=== PATIENT | female | born 2000 | race Caucasian/White ===

== ENCOUNTER 2024-03-06 10:21 | Outpatient (CLI) | payer OTHER, SELFPAY ==
--- NOTE | 2024-03-06 11:30 | ECG_ITS ---
Test Date: 2024-03-06 11:36:15 Measurements Intervals [place] Rate: 80 P: 57 IN: 151 QRS: 12 QRSD: 92 T: 43 QT: 348 QTc: 404 Interpretive Statements SINUS RHYTHM POSSIBLE LEFT ATRIAL ENLARGEMENT [-0.1mV P WAVE IN V1/V2] INCOMPLETE RIGHT BUNDLE BRANCH BLOCK No previous ECG available for comparison Electronically Signed On 03-07-2024 10:29:52 CDT by Palmira Bowen M.D.
== END 2024-03-06 10:22 | disposition home or self-care (01) ==
PROVIDERS: PCP Family Medicine; Visit Provider Physician Assistant Medical
DX: R00.2 Palpitations (principal); I45.10 Unspecified right bundle-branch block
CPT/HCPCS: 93005

== ENCOUNTER 2024-03-29 12:59 | Outpatient (CLI) | payer OTHER, SELFPAY ==
--- NOTE | 2024-03-29 13:03 | ECHO_ITS ---
Patient Info Name: Radha Kilpatrick Age: 24 years : 2000 Gender: Female Ht: 64 in Wt: 173 lbs BSA: 1.91 m2 HR: 75 bpm BP: 134 / 91 mmHg Heart Rhythm: Sinus Rhythm Technical Quality: Good Exam Date: 03/29/2024 1:38 PM Exam Location: Echo Lab Patient Status: Outpatient Admit Date: 03/29/2024 Staff Ordering Physician: Danelle Olivo MD Pizza Cook: Germain Larios RDCS Attending Provider: Danelle Olivo MD Referring Physician: Geovani TOMLIN; Exam Type: CA echo doppler color flow Study Info Indications - palpatation Complete two-dimensional, color flow and Doppler transthoracic echocardiogram is performed. Summary 1. Complete two-dimensional, color flow and Doppler transthoracic echocardiogram is performed. 2. Left ventricular chamber dimension is normal. 3. Left ventricular systolic function is normal, estimated at 60-65%. 4. The left ventricular diastolic function is normal. 5. E/e' 8 is minimally elevated. 6. There is trace mitral valve regurgitation. 7. There is trace tricuspid valve regurgitation. 8. No pulmonary hypertension, estimated pulmonary arterial systolic pressure is 20 mmHg. 9. There is trace pulmonic regurgitation. Left Ventricle E/e' 8 is minimally elevated. Left ventricular chamber dimension is normal. Left ventricular systolic function is normal, estimated at 60-65%. The left ventricular diastolic function is normal. Right Ventricle Right ventricular systolic function is normal and with normal TAPSE 2.3 cm. Right ventricular chamber dimension is normal. Left Atria Left atrial chamber dimension is normal. Right Atria Right atrial chamber dimension is normal. Aortic Valve The aortic valve is trileaflet. There is no aortic valve stenosis. There is no aortic valve regurgitation. Pulmonic Valve There is trace pulmonic regurgitation. Mitral Valve There is no mitral valve stenosis. There is trace mitral valve regurgitation. Tricuspid Valve There is trace tricuspid valve regurgitation. No pulmonary hypertension, estimated pulmonary arterial systolic pressure is 20 mmHg. Pericardium/Pleural There is no pericardial effusion. Inferior Vena Cava Normal inferior vena cava with >50% collapse upon inspiration consistent with normal right atrial pressure, 5 mmHg. Aorta The aortic root size at the sinus of Valsalva is normal. Left Ventricular Outflow Tract Name Value Normal LVOT 2D LVOT Diameter 1.9 cm LVOT Doppler LVOT Peak Gradient 6 mmHg LVOT Mean Gradient 3 mmHg LVOT VTI 23 cm LVOT VTI/AV VTI Ratio 0.9 LVOT Stroke Volume 66 ml LVOT CO 5.6 l/min LVOT CI 2.9 l/min/m2 Pulmonic Valve Name Value Normal PV Doppler PV Peak Gradient 6 mmHg Mitral Valve
== END 2024-03-29 13:00 | disposition home or self-care (01) ==
LOC: ANHCARD 13:01
PROVIDERS: PCP Family Medicine; Visit Provider Family Medicine
DX: R00.2 Palpitations (principal)
CPT/HCPCS: 93306